=== PATIENT | male | born 1995 | race African-American/Black ===

== ENCOUNTER 2020-06-24 21:04 | Emergency (ER) | payer MEDICAID, OTHER ==
[~2020-06-24] VITALS: Ht 175.3 cm; Wt 97.3 kg
--- NOTE | 2020-06-24 22:05 | NUR ---
PT RESTING COMFORTABLY IN [facility] AT THIS TIME; PT ATTACHED TO ALL VS MONITORS. PT VERBALIZES UNDERSTANDING OF POC AND HAS CALL LIGHT WITHIN REACH.
--- NOTE | 2020-06-24 23:35 | NUR ---
pt d/c with d/c summary. all questions answered. pt educated on need to socially isolate until results of covid conclude. pt verbalizes understanding. pt provided work note per pt request. pt denies any other needs pertaining to this visit and ambulates to registration desk with steady gait.
[2020-06-24 23:36] VITALS: BP 137/70
== END 2020-06-24 23:46 | disposition home or self-care (01) ==
LOC: ED 23:10
DX: B34.9 Viral infection, unspecified (principal); Z20.828 Contact with and (suspected) exposure to other viral communicable diseases; R06.00 Dyspnea, unspecified; R05 Cough; R00.0 Tachycardia, unspecified; R50.9 Fever, unspecified
CPT/HCPCS: 36415; 71045; 87635; 93005; 99285